=== PATIENT | male | born 1990 | race Caucasian/White ===

== ENCOUNTER 2018-08-24 20:49 | Emergency (ER) | payer SELFPAY ==
--- NOTE | 2018-08-24 22:32 | RADIOLOGY REPORT (SQ) ---
EXAM DESCRIPTION: XR RIGHT ANKLE 3 OR MORE VIEWS COMPLETED DATE/TME: 08/24/2018 21:18 CLINICAL HISTORY: 27 years, Male, bone tenderness COMPARISON: None. NUMBER OF VIEWS: TECHNIQUE: LIMITATIONS: None. FINDINGS: No fracture or dislocation. There is lateral and anterior soft tissue swelling. Mineralization of bone appears normal. IMPRESSION: Soft tissue swelling. copyright 2010 [facility]- All Rights Reserved
--- NOTE | 2018-08-24 22:35 | RADIOLOGY REPORT (SQ) ---
EXAM DESCRIPTION: XR ANKLE 3 OR MORE VIEWS COMPLETED DATE/TME: 08/24/2018 21:18 CLINICAL HISTORY: 27 years Male, bone tenderness COMPARISON: None. Findings: Bones, joints, and soft tissues of the LEFT XR ANKLE 3 VIEWS appear intact. IMPRESSION: No acute findings.
--- NOTE | 2018-08-25 00:28 | ER Document Report ---
ED Medical Screen (RME) - General Chief Complaint: Wound Infection Stated Complaint: ANKLE PAIN Time Seen by Provider: 08/25/18 00:23 Mode of Arrival: Ambulatory Information source: Patient Notes: 27-year-old male presents to ED for complaint of infection to the right knee and both ankles. He states he was in a bouncy house on August 13 and met multiple people have come back positive for MRSA since they were in this house. He does have pustules to the right knee and scabbed sores to both ankles. He states these developed soon after playing in the bouncy house. He states he has pain in both ankles and his right knee. He has not seen his primary care provider. He states he does smoke 10 to 20 cigarettes smokes pot and drinks couple beers a day he states he takes Adderall that is not prescribed. When I rechecked his pulse it was 113. He states he took some Adderall today.. I have greeted and performed a rapid initial assessment of this patient. A comprehensive ED assessment and evaluation of the patient, analysis of test results and completion of medical decision making process will be conducted by an additional ED providers. Dictation of this chart was performed using voice recognition software; therefore, there may be some unintended grammatical errors. TRAVEL OUTSIDE OF THE [place] IN LAST 30 DAYS: No - Related Data Allergies/Adverse Reactions: No Known Allergies Allergy (Verified 05/08/14 21:39) Past Medical History - Immunizations Immunizations up to date: Yes Hx Diphtheria, Pertussis, Tetanus Vaccination: No Physical Exam - Vital signs Vitals: Temp Pulse Resp BP Pulse Ox 98.1 F 131 H 18 120/83 97 08/24/18 21:56 08/24/18 21:56 08/24/18 21:56 08/24/18 21:56 08/24/18 21:56 Course - Vital Signs Vital signs: Temp Pulse Resp BP Pulse Ox 98.1 F 131 H 18 120/83 97 08/24/18 21:56 08/24/18 21:56 08/24/18 21:56 08/24/18 21:56 08/24/18 21:56
[2018-08-25] MEDS ORDERED: SULFAMETHOXAZOLE/TRIMETHOPRIM 800-160 MG TABLET PO ONE (03:06)
[2018-08-25] MEDS ORDERED: CEPHALEXIN 500 MG CAPSULE PO ONE (03:06)
[2018-08-25 04:06] VITALS: BP 115/72
--- NOTE | 2018-08-25 06:56 | ER Document Report ---
Entered by VIVIANE BEGUM SCRIBE 08/25/18 [id number] Acting as scribe for:KANA VERA DO ED General - General Chief Complaint: Wound Infection Stated Complaint: ANKLE PAIN Time Seen by Provider: 08/25/18 00:23 Mode of Arrival: Ambulatory Notes: Patient is a 27-year-old male presenting to the emergency department complaining of ankle pain. Patient states that about a week ago he was bouncing in a bounce house with 30 other people, many kids. Patient states that he has lesions on his right knee, legs and bilateral ankles and that 15 people who were also in the bounce house have been diagnosed with MRSA. Patient states that he believes he has ankle ulcers, and he has not had a fever but has noticed his extremities are very hot. Patient states that he had someone drain that spots on his ankle, it was very painful and produced pus. TRAVEL OUTSIDE OF THE [place] IN LAST 30 DAYS: No - Related Data Allergies/Adverse Reactions: No Known Allergies Allergy (Verified 05/08/14 21:39) Past Medical History - General Information source: Patient - Social History Smoking Status: Never Smoker Cigarette use (# per day): No Chew tobacco use (# tins/day): No Frequency of alcohol use: None Drug Abuse: None Family History: Reviewed & Not Pertinent - Immunizations Immunizations up to date: Yes Hx Diphtheria, Pertussis, Tetanus Vaccination: No Review of Systems - Review of Systems Constitutional: No symptoms reported EENT: No symptoms reported Cardiovascular: No symptoms reported Respiratory: No symptoms reported Gastrointestinal: No symptoms reported Genitourinary: No symptoms reported Male Genitourinary: No symptoms reported Musculoskeletal: See HPI, Ankle swelling, Other - Ankle pain Skin: See HPI, Lesions Hematologic/Lymphatic: No symptoms reported Neurological/Psychological: No symptoms reported -: Yes All other systems reviewed and negative Physical Exam - Vital signs Vitals: Temp Pulse Resp BP Pulse Ox 98.1 F 131 H 18 120/83 97 08/24/18 21:56 08/24/18 21:56 08/24/18 21:56 08/24/18 21:56 08/24/18 21:56 Interpretation: Tachycardic - Notes Notes: PHYSICAL EXAM GENERAL: Alert, interacts well. No acute distress. HEAD: Normocephalic, atraumatic. EYES: Pupils equal, round, and reactive to light. Extraocular movements intact. ENT: Oral mucosa moist, tongue midline. NECK: Full range of motion. Supple. Trachea midline. LUNGS: Clear to auscultation bilaterally, no wheezes, rales, or rhonchi. No respiratory distress. HEART: Regular rate and rhythm. No murmurs, gallops, or rubs. ABDOMEN: Soft, non-tender. Non-distended. Bowel sounds present in all 4 quadrants. No guarding, rigidity, or rebound. EXTREMITIES: Open wounds at right lateral malleolus, posterior to R medial malleolus, over the left medial malleolus and left lateral ankle proximal to lateral malleolus. Right knee has pustules, with various degrees of erythema surrounding pustules, no more than 1 cm. None of the pustules are larger than 2 mm. No lymphangitic streaking. Moves all 4 extremities spontaneously. No edema, radial and dorsalis pedis pulses 2/4 bilaterally. No cyanosis. NEUROLOGICAL: Alert and oriented x3. Normal speech. Biceps and patellar DTRs 2+ bilaterally. PSYCH: Normal affect, normal mood. SKIN: See extremities exam. No fluctuance. Warm, dry. Course - Re-evaluation Re-evalutation: 08/25/18 03:07 Consistent with folliculitis, no evidence of active abscess that needs to be drained only small pustules around hair follicles, no lymphangitic streaking. Patient will be treated with Bactrim and Keflex due to recent exposure to MRSA. Discharged home. - Vital Signs Vital signs: Temp Pulse Resp BP Pulse Ox 98.5 F 88 16 115/72 100 08/25/18 03:59 08/25/18 03:59 08/25/18 03:59 08/25/18 03:59 08/25/18 03:59 Discharge - Discharge Clinical Impression: Folliculitis Condition: Stable Disposition: HOME, SELF-CARE Additional Instructions: Folliculitis You have a skin infection called folliculitis. This occurs when bacteria infect the hair follicles of the skin. Typically, redness and small pustules are found where hair shafts enter the skin. Allergy, surface irritation, shaving, and exposure to hot tubs predispose to folliculitis. The usual treatment is antibiotic ointment, sometimes combined with cortisone-type medication. Warm compresses are often used. If the infection has moved deeper into the skin, oral antibiotics may be necessary. To avoid future episodes of folliculitis, you must identify (if possible) the factors which allowed this infection to start. If you develop increasing pain, swelling, fever, or red streaks, call the doctor or return for re-evaluation. Prescriptions: Cephalexin Monohydrate [Keflex 500 mg Capsule] 1,000 mg PO BID #28 capsule Sulfamethoxazole/Trimethoprim [Bactrim Ds Tablet] 1 each PO BID #14 tablet Forms: Return to Work I personally performed the services described in the documentation, reviewed and edited the documentation which was dictated to the scribe in my presence, and it accurately records my words and actions.
== END 2018-08-25 04:07 | disposition home or self-care (01) ==
LOC: ER 20:49
DX: L73.9 Follicular disorder, unspecified (principal); M25.579 Pain in unspecified ankle and joints of unspecified foot; Z20.818 Contact with and (suspected) exposure to other bacterial communicable diseases
CPT/HCPCS: 99283